=== PATIENT | female | born 1970 ===

== ENCOUNTER 2022-05-11 06:00 | Outpatient (RCR) | payer BC, SELFPAY | END 2022-05-24 23:59 | disposition home or self-care (01) | LOC: TPT 06:00 | PROVIDERS: Visit Provider Orthopaedic Surgery | DX: S83.282D Other tear of lateral meniscus, current injury, left knee, subsequent encounter (principal); X58.XXXD Exposure to other specified factors, subsequent encounter | CPT/HCPCS: 97161 ==

== ENCOUNTER 2022-07-28 06:00 | Outpatient (RCR) | payer BC, SELFPAY | END 2022-08-24 23:59 | disposition home or self-care (01) | LOC: TPT 06:00 | PROVIDERS: Visit Provider Orthopaedic Surgery | DX: Z47.89 Encounter for other orthopedic aftercare (principal) | CPT/HCPCS: 97110; 97162 ==

== ENCOUNTER 2022-09-08 12:14 | Outpatient (RCR) | payer BC, SELFPAY | END 2022-09-23 23:59 | disposition home or self-care (01) | LOC: TPT 12:14 | PROVIDERS: PCP Orthopaedic Surgery; Visit Provider Orthopaedic Surgery | DX: Z47.89 Encounter for other orthopedic aftercare (principal) | CPT/HCPCS: 97110; 97140; 97162 ==

== ENCOUNTER 2022-09-24 06:00 | Outpatient (RCR) | payer BC, SELFPAY | END 2022-10-14 23:59 | disposition home or self-care (01) | LOC: TPT 06:00 | PROVIDERS: PCP Orthopaedic Surgery; Visit Provider Orthopaedic Surgery | DX: Z47.89 Encounter for other orthopedic aftercare (principal) | CPT/HCPCS: 97110; 97140; 97164 ==

== ENCOUNTER 2023-12-07 06:00 | Outpatient (RCR) | payer BC, SELFPAY | END 2023-12-25 23:59 | disposition home or self-care (01) | LOC: TPT 06:00 | PROVIDERS: PCP Orthopaedic Surgery; Visit Provider Orthopaedic Surgery | DX: Z47.1 Aftercare following joint replacement surgery (principal); Z96.652 Presence of left artificial knee joint | CPT/HCPCS: 97110; 97140; 97161 ==

== ENCOUNTER 2023-12-26 06:30 | Outpatient (RCR) | payer BC, SELFPAY | END 2024-01-11 23:59 | disposition home or self-care (01) | LOC: TPT 06:30 | PROVIDERS: PCP Orthopaedic Surgery; Visit Provider Orthopaedic Surgery | DX: Z98.890 Other specified postprocedural states (principal) | CPT/HCPCS: 97110; 97140 ==